=== PATIENT | female | born 1960 | race Caucasian/White ===

== ENCOUNTER 2021-07-10 08:15 | Day surgery (SDC) | payer BC ==
[2021-07-10] VITALS (13 sets, daily range): BP systolic 111–149; BP diastolic 50–74; PULSE 71–88; TEMP 98.1
[~2021-07-10] VITALS: Ht 167.6 cm; Wt 100.7 kg
[2021-07-10 09:33] LABS: HEMATOCRIT 40.9 % (37.0-47.0); HEMOGLOBIN 13.3 g/dl (12.5-16.0); MEAN CELL VOLUME 90 fl (80.0-100.0); MEAN CORPUSCULAR HEMOGLOBIN 29 pg (27-31); MEAN CORPUSCULAR HGB CONC 33 g/dl (33.0-37.0); PLATELET COUNT 283 K/mm3 (130-400); RED BLOOD COUNT 4.54 M/mm3 (4.10-5.30); REDCELL DISTRIBUTION WIDTH-CV 13.3 % (11.5-14.5)
[2021-07-10] MEDS ORDERED: SYNTHROID0.175 MG PO (09:38)
[2021-07-10] MEDS ORDERED: HCTZ12.5TAB PO (09:39)
[2021-07-10] MEDS ORDERED: COZAAR100 MG PO (09:39)
[2021-07-10] MEDS ORDERED: ASPIRIN E.C. 8181 MG PO (09:40)
[2021-07-10] MEDS ORDERED: TOPROL XL 25MG25 MG PO (09:40)
[2021-07-10] MEDS ORDERED: GLUCOPHAGE XR750 MG PO (09:41)
[2021-07-10 09:42] LABS: INR 0.9 (0.8-3.0); PROTHROMBIN TIME 10.2 SECONDS (9.7-12.8)
[2021-07-10] MEDS ORDERED: NOVLOG SQ (09:44)
[2021-07-10 09:48] LABS: CALCIUM 9.2 mg/dL (8.4-10.2); CREATININE, serum 1.16 mg/dL (0.57-1.11); POTASSIUM 4.6 mmol/L (3.5-4.5)
--- NOTE | 2021-07-10 11:25 | NUR ---
PATIENT ALERT AND ORIENTED, NO REPORTS OF CHEST PAIN FAMILY AT SIDE AND CONSENT VERIFIED. SEE MERGE FOR VITALS AND MEDICATION ADMINISTRATION
--- NOTE | 2021-07-10 11:45 | NUR ---
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 gcs 15, pwd, resp reg and unlabored. rt groin site dressing is clean dry and intact. REPORT received from Chad SIMENTAL.
[2021-07-10] MEDS ORDERED: LIPITOR 40MG TA40 MG PO (14:18)
--- NOTE | 2021-07-10 15:45 | NUR ---
Pt has done well during her recovery. Rt groin site remains soft without evidence of bleeding and CMS is intact distal. Pt and I reviewed dc/rx and fu instructions. She verbalized understanding and denied questions at time of departure. She has been up and amb in unit with steady gait. IV dc'd. to exit via wheelchair.
== END 2021-07-10 17:17 | disposition home or self-care (01) ==
LOC: COL.CAR 08:15
PROVIDERS: Internal Medicine Cardiovascular Disease
DX: I25.10 Atherosclerotic heart disease of native coronary artery without angina pectoris (principal); R93.1 Abnormal findings on diagnostic imaging of heart and coronary circulation; I10 Essential (primary) hypertension; I08.0 Rheumatic disorders of both mitral and aortic valves; E78.2 Mixed hyperlipidemia
CPT/HCPCS: C1760; C1894; J1644; J2250; J3010